=== PATIENT | male | born 1980 | race African-American/Black ===

== ENCOUNTER 2016-06-02 03:03 | Emergency (ER) | payer SELFPAY ==
[~2016-06-02] VITALS: Ht 160 cm; Wt 61.2 kg
[~2016-06-02 03:03] MED LIST: PROAIR HFA8.5 GM INH; steroid
[2016-06-02] MEDS ORDERED: PROAIR HFA8.5 GM INH (03:28)
[2016-06-02 03:29] VITALS: BP 114/77
--- NOTE | 2016-06-02 03:29 | PHYS DOC ---
Past Medical History Past Medical History: Asthma Past Surgical History: No Surgical History Alcohol Use: Occasionally Drug Use: Marijuana, Methamphetamine Adult General Chief Complaint Chief Complaint: Congestion HPI HPI Patient is a 36 year old male who presents with 2 weeks of rhinorrhea, nasal congestion, dry cough, chills, and fatigue. States he is using someone else's inhaler for intermittent cough. He denies difficulty breathing. States his symptoms are worse at night. He is taking Excedrin without relief of his symptoms. He denies chest pain, measured fever, headache, sore throat, diarrhea , nausea or vomiting. Review of Systems Review of Systems Constitutional: Denies fever or chills [] Eyes: Denies change in visual acuity, redness, or eye pain [] HENT: Denies sore throat [] Respiratory: Denies shortness of breath [] Cardiovascular: No additional information not addressed in HPI [] GI: Denies abdominal pain, nausea, vomiting, bloody stools or diarrhea [] : Denies dysuria or hematuria [] Musculoskeletal: Denies back pain or joint pain [] Integument: Denies rash or skin lesions [] Neurologic: Denies headache, focal weakness or sensory changes [] Endocrine: Denies polyuria or polydipsia [] Allergies Allergies Allergies Coded Allergies Type Severity Reaction Last Updated Verified No Known Drug Allergies 04/13/16 No Physical Exam Physical Exam Constitutional: Well developed, well nourished, no acute distress, non-toxic appearance. [] HENT: Normocephalic, atraumatic, bilateral external ears normal, oropharynx moist, no oral exudates, nose normal. [] Eyes: PERRLA, EOMI. [] Neck: Normal range of motion, supple. [] Cardiovascular:Heart rate regular rhythm [] Lungs & Thorax: Bilateral breath sounds clear to auscultation [] Abdomen: Bowel sounds normal, soft, no tenderness. [] Skin: Warm, dry, no erythema, no rash. [] Back: Normal range of motion. [] Extremities: ROM intact, no edema. [] Neurologic: Alert and oriented X 3, normal motor function, normal sensory function, no focal deficits noted. [] Psychologic: Affect normal, judgement normal, mood normal. [] Course & Med Decision Making Course & Med Decision Making Pertinent Labs and Imaging studies reviewed. (See chart for details) Appears well on exam without focal bacterial signs of infection. Offered Tylenol or ibuprofen while he was here, but he declined. Will give prescription for albuterol refill. Encouraged him to follow up with his primary care doctor. Return precautions given. He understands and agrees with plan. Dragon Disclaimer Fainaon Disclaimer This electronic medical record was generated, in whole or in part, using a voice recognition dictation system. Departure Departure Impression: Primary Impression: Viral upper respiratory infection Additional Impression: Asthma Disposition: HOME, SELF-CARE Condition: STABLE Referrals: NO PCP (PCP) Patient Instructions: Upper Respiratory Infection, Adult, [id number] Additional Instructions: Follow-up with your primary care doctor. Return for any concerns. Scripts Albuterol Sulfate (Proair Hfa Inhaler)8.5 Gm Hfa.aer.ad2 Puff INH Q4HRS PRN SHORTNESS OF BREATH #1 INHALER Prov:Terrell ARIAS MD 06/02/16 Problem Qualifiers Additional Impression: Asthma Asthma severity: unspecified severity Asthma complication type: uncomplicated Qualified Code: J45.909 - Unspecified asthma, uncomplicated Terrell ARIAS MD Jun 02, 2016 03:29
== END 2016-06-02 03:40 | disposition home or self-care (01) ==
LOC: ER 03:03
DX: J06.9 Acute upper respiratory infection, unspecified (principal); J45.909 Unspecified asthma, uncomplicated; F12.10 Cannabis abuse, uncomplicated; F15.10 Other stimulant abuse, uncomplicated
CPT/HCPCS: 99283

== ENCOUNTER 2016-07-18 05:54 | Emergency (ER) | payer SELFPAY ==
[~2016-07-18] VITALS: Ht 160 cm; Wt 63.5 kg
[2016-07-18] MEDS ORDERED: IPRATRPIUM/ALBUTEROL 0.5/2.5MG 3 ML NEBU. NEB ONE (06:15)
[2016-07-18] MEDS ORDERED: HYDR-2666 PO (06:28)
--- NOTE | 2016-07-18 06:28 | PHYS DOC ---
Past Medical History Past Medical History: Asthma Past Surgical History: No Surgical History Alcohol Use: Occasionally Drug Use: Marijuana, Methamphetamine Adult General Chief Complaint Chief Complaint: ASTHMA HPI HPI 36-year-old male presenting to the emergency department today with cough without fevers or chills. He has a history of asthma. He feels difficult breathing headache and back pain for a few days. He reports being out of his inhaler at home. Occasional lungs. Duration intermittent. No alleviating factors. Review of systems is negative for cough fevers chills. He denies meningeal symptoms of neck stiffness. Negative for abdominal pain chest pain. All other review of systems is negative unless otherwise noted in history of present illness. Review of Systems Review of Systems SEE ABOVE. Current Medications Current Medications Current Medications Medications (Trade) Dose Ordered Sig/Balwinder Start Time Stop Time Status Last Admin Dose Admin Albuterol/ Ipratropium (Duoneb) 3 ml 1X ONCE 07/18/16 06:15 07/18/16 06:16 DC 07/18/16 06:27 3 ML Prednisone (Prednisone) 50 mg 1X ONCE 07/18/16 06:30 07/18/16 06:31 DC 07/18/16 07:25 50 MG Allergies Allergies Allergies Coded Allergies Type Severity Reaction Last Updated Verified No Known Drug Allergies 04/13/16 No Physical Exam Physical Exam Constitutional: Well developed, well nourished, no acute distress, non-toxic appearance. HENT: Normocephalic, atraumatic, bilateral external ears normal, oropharynx moist, no oral exudates, nose normal. [] Eyes: PERRLA, EOMI, conjunctiva normal, no discharge. Neck: Normal range of motion, no tenderness, supple, no stridor. Cardiovascular:Heart rate regular rhythm, no murmur [] Lungs & Thorax: Prolonged expiratory phase. Wheezing. No crackles present. Abdomen: Bowel sounds normal, soft, no tenderness, no masses, no pulsatile masses. [] Skin: Warm, dry, no erythema, no rash. Back: No tenderness, no CVA tenderness. [] Extremities: No tenderness, no cyanosis, no clubbing, ROM intact, no edema. [] Neurologic: Alert and oriented X 3, normal motor function, normal sensory function, no focal deficits noted. Psychologic: Affect normal, judgement normal, mood normal. Current Patient Data Vital Signs Vital Signs Date Time Temp Pulse Resp B/P Pulse Ox O2 Delivery O2 Flow Rate FiO2 07/18/16 06:29 99 Room Air 07/18/16 05:57 98.6 97 16 98.6 EKG EKG [] Radiology/Procedures Radiology/Procedures [] Course & Med Decision Making Course & Med Decision Making Pertinent Labs and Imaging studies reviewed. (See chart for details) [] 36-year-old male presenting the emergency department with wheezing and cough after running out of his inhaler at home. Vital signs afebrile. Saturating 94% on room air. Pertinent exam shows wheezing bilaterally. Patient was given nebulizers and steroids in the emergency department which improved his symptoms significantly. He subsequent discharged home with an inhaler and a small burst of prednisone to follow-up with his PCP over the next 3-4 days for chronic asthma management. Dragon Disclaimer Dragon Disclaimer This electronic medical record was generated, in whole or in part, using a voice recognition dictation system. Departure Departure Impression: Primary Impression: Asthma Additional Impression: Asthma exacerbation Disposition: HOME, SELF-CARE Condition: STABLE Referrals: NO PCP (PCP) REJI DANGELO MD Patient Instructions: Asthma Attacks, Prevention, Asthma, Adult Additional Instructions: Thank you for allowing us to participate in your care today. Followup with your primary care physician in 3 days if your symptoms do not improve. If you do not have a primary care provider you can ask for a list of our primary care providers. Return to the emergency department you have any new or concerning findings. This should be evaluated by the primary care physician and any necessary consulting services for continued management within a few days after discharge. Return to emergency room if you have any new or concerning symptoms including but not limited to fever, chills, nausea, vomiting, intractable pain, any new rashes, chest pain, shortness of air, uncontrolled bleeding, difficulty breathing, and/or vision loss. You may have been prescribed medication that can change in your level of thinking and ability to operate machinery. These medications include hydrocodone and Ativan. Also, Benadryl has been known to do this as well. Be sure to check with your pharmacist and ask if the medications you've prescribed can affect your level of consciousness. I recommend not operating heavy machinery or driving while on medication such as these. Scripts Prednisone 50 Mg [id number] Mg PO DAILY #4 TAB Start taking this medication on the morning of July 19, 2016. He received a medication on the so he will not needed for his stay. Prov:NIC KEATING MD 07/18/16 Albuterol Sulfate (Proair Hfa Inhaler)8.5 Gm Hfa.aer.ad1 Puff INH PRN Q6HRS PRN SHORTNESS OF BREATH #1 INHALER Prov:NIC KEATING MD 07/18/16 Hydrocodone Bit/Acetaminophen (Hydrocodone-Apap 5-325 )1 Each Tablet1 Tab PO PRN Q6HRS PRN PAIN #15 TAB Be careful as this medication may cause you to be drowsy or tired. Do not drive on this medication. Prov:NIC KEATING MD 07/18/16 Problem Qualifiers NIC KEATING MD Jul 18, 2016 06:28
[2016-07-18] MEDS ORDERED: PREDNISONE 10 MG TABLET PO ONE (06:30)
[2016-07-18] MEDS ORDERED: PROAIR HFA8.5 GM INH (07:30)
[2016-07-18] MEDS ORDERED: PRED50TA PO (07:31)
[2016-07-18 07:38] VITALS: BP 102/56
== END 2016-07-18 07:39 | disposition home or self-care (01) ==
LOC: ER 05:54
DX: J45.901 Unspecified asthma with (acute) exacerbation (principal); F12.10 Cannabis abuse, uncomplicated; F15.10 Other stimulant abuse, uncomplicated
CPT/HCPCS: 94640; 99283; J7512; J7620

== ENCOUNTER 2018-07-04 08:22 | Emergency (ER) | payer SELFPAY ==
[~2018-07-04] VITALS: Ht 162.6 cm; Wt 67.6 kg
[~2018-07-04 08:22] MED LIST changes: +ALBU2.5V8 INH; +HYDR-2761 PO; +PRED50TA PO; -PROAIR HFA8.5 GM INH
[2018-07-04 08:32] VITALS: BP 116/76
[2018-07-04] MEDS ORDERED: NAPROXEN 500 MG TABLET PO STA (08:35)
--- NOTE | 2018-07-04 08:40 | PHYS DOC ---
Past Medical History Past Medical History: Asthma Past Surgical History: No Surgical History Alcohol Use: Occasionally Drug Use: Marijuana, Methamphetamine Adult General Chief Complaint Chief Complaint: BACK PAIN OR INJURY [facility] HPI Patient is a 38 year old male with history of asthma, homeless, who presents to the ED today from the [facility] stating he is here to be seen for chronic mid back pain since 1994 when he was involved 2 [facility]. Patient denies anything new about his pain today. He rates the pain at 8 out of 10 describes the pain as throbbing and intermittent. Denies pain radiating to bilateral lower extremities , denies any numbness or tingling to bilateral lower extremities, denies any loss of bowel bladder function. Patient is requesting food, he is also requesting an inhaler, he states he has asthma and would like us to given a free inhaler. Informed patient this hospital does not provide free inhalers but can provided a breathing tx in the ED, he started stating he has been coming here for years and used to given free inhalers before. Informed him our policy changed and we no longer give free inhalers, we can provide him a breathing treatment and a prescription for albuterol inhaler to go home with. His lungs are clear. Breathing treatment offered in the ED. Patient provided food. Given naproxen for his pain. Provided resources for homeless people as well as follow-up. Review of Systems Review of Systems Constitutional: Denies fever or chills [] Eyes: Denies change in visual acuity, redness, or eye pain [] HENT: Denies nasal congestion or sore throat [] Respiratory: Denies cough or shortness of breath [] Cardiovascular: No additional information not addressed in HPI [] GI: Denies abdominal pain, nausea, vomiting, bloody stools or diarrhea [] : Denies dysuria or hematuria [] Musculoskeletal: Chronic mid back pain Integument: Denies rash or skin lesions [] Neurologic: Denies headache, focal weakness or sensory changes [] Pysch: homeless All other systems were reviewed and found to be within normal limits, except as documented in this note. Current Medications Current Medications Current Medications Medications (Trade) Dose Ordered Sig/Balwinder Start Time Stop Time Status Last Admin Dose Admin Albuterol/ Ipratropium (Duoneb) 3 ml 1X ONCE 07/04/18 08:45 07/04/18 08:46 DC Naproxen (Naprosyn) 500 mg 1X STAT 07/04/18 08:35 07/04/18 08:39 DC Allergies Allergies Allergies Coded Allergies Type Severity Reaction Last Updated Verified No Known Drug Allergies 04/13/16 No Physical Exam Physical Exam Constitutional: Well developed, well nourished, no acute distress, non-toxic appearance. [] HENT: Normocephalic, atraumatic, bilateral external ears normal, oropharynx moist, no oral exudates, nose normal. [] Eyes: PERRLA, EOMI, conjunctiva normal, no discharge. [] Neck: Normal range of motion, no tenderness, supple, no stridor. [] Cardiovascular:Heart rate regular rhythm, no murmur [] Lungs & Thorax: Bilateral breath sounds clear to auscultation [] Abdomen: Bowel sounds normal, soft, no tenderness, no masses, no pulsatile masses. [] Skin: Warm, dry, no erythema, no rash. [] Back: No tenderness, no CVA tenderness. [] Extremities: No tenderness, no cyanosis, no clubbing, ROM intact, no edema. [] Neurologic: Alert and oriented X 3, normal motor function, normal sensory function, no focal deficits noted. [] Psychologic: Appears sleepy in the emergency room Current Patient Data Vital Signs Vital Signs Date Time Temp Pulse Resp B/P (MAP) Pulse Ox O2 Delivery O2 Flow Rate FiO2 07/04/18 08:32 97.4 94 18 116/76 (89) 99 Room Air 97.4 EKG EKG [] Radiology/Procedures Radiology/Procedures [] Course & Med Decision Making Course & Med Decision Making Pertinent Labs and Imaging studies reviewed. (See chart for details) see HPI Dragon Disclaimer Dragon Disclaimer This electronic medical record was generated, in whole or in part, using a voice recognition dictation system. Departure Departure Impression: Primary Impression: Chronic back pain Additional Impression: Homeless Disposition: 01 HOME, SELF-CARE Condition: STABLE Referrals: NO PCP (PCP) follow up with your doctor in 1-2 weeks Patient Instructions: Back Pain, Adult Additional Instructions: You were evaluated in the emergency room. Please follow-up with a primary care doctor. We provided you a prescription for inhaler. Use it as needed. Scripts Cyclobenzaprine Hcl (CYCLOBENZAPRINE HCL) 10 Mg Tablet 1 TAB PO TID, #30 TAB Prov: MUTUNGA,ASMITA [employer] 07/04/18 Naproxen (NAPROXEN) 500 Mg Tablet 1 TAB PO BID, #20 TAB 0 Refills Prov: ASMITA HALE APRN 07/04/18 Albuterol Sulfate (VENTOLIN HFA INHALER) 18 Gm Hfa.aer.ad 2 PUFF INH Q4HRS for FOR ASTHMA, #1 INHALER 0 Refills Prov: ASMITA HALE APRN 07/04/18 Problem Qualifiers Primary Impression: Chronic back pain Back pain location: thoracic back pain Back pain laterality: bilateral Qualified Codes: M54.6 - Pain in thoracic spine; G89.29 - Other chronic pain ASMITA HALE APRN Jul 04, 2018 08:40
[2018-07-04] MEDS ORDERED: VENTOLIN HFA18 GM INH (08:45)
[2018-07-04] MEDS ORDERED: CYCL10TA2 PO (08:45)
[2018-07-04] MEDS ORDERED: IPRATRPIUM/ALBUTEROL 0.5/2.5MG 3 ML NEBU. NEB ONE (08:45)
[2018-07-04] MEDS ORDERED: NAPR-514 PO (08:45)
== END 2018-07-04 08:58 | disposition home or self-care (01) ==
LOC: ER 08:22
DX: G89.29 Other chronic pain (principal); M54.6 Pain in thoracic spine; J45.909 Unspecified asthma, uncomplicated; Z59.0 Homelessness
CPT/HCPCS: 94640; 99283; J7620